=== PATIENT | male | born 1940 | race Asian ===

== ENCOUNTER 2017-07-06 06:55 | Day surgery (SDC) | payer OTHER ==
[2017-07-03 15:55] VITALS: BMI 25.6
[~2017-07-06 06:55] MED LIST: LEVOFLOXACIN 500 MG PREMIX BAG IVPB ONE
[2017-07-06] MEDS ORDERED: LIDOCAINE HCL/PF 2% SDV 5ML VIAL ONE (07:41)
[2017-07-06] MEDS ORDERED: MIDAZOLAM HCL 2 MG/2 ML SINGLE DOSE VIAL ONE (07:41)
[2017-07-06] MEDS ORDERED: PROPOFOL 20 ML ONE ×4 (07:42)
[2017-07-06] MEDS ORDERED: LEVOFLOXACIN 500 MG PREMIX BAG IVPB ONE (08:20)
[2017-07-06] MEDS ORDERED: PHENYLEPHRINE HCL 10 MG/1 ML SINGLE DOSE VIAL ONE (08:31)
[2017-07-06] MEDS ORDERED: oxyCODONE HCL 5 MG TABLET PO PRN (08:58)
[2017-07-06] MEDS ORDERED: ONDANSETRON 4 MG/2 ML VIAL IVPUSH PRN (08:58)
[2017-07-06] MEDS ORDERED: LACTATED RINGERS SOLUTION 1,000 ML IV SCH (09:00)
[2017-07-06 09:23] VITALS: TEMP 97.5
[2017-07-06 09:49] VITALS: BP 104/70; PULSE 68
--- NOTE | 2017-07-06 10:21 | OP ---
Operative Note - Note: Operative Date: 07/06/17 Pre-Operative Diagnosis: left renal stone Operation: left ESWL Findings: 15 mm left upper pole and 15 mm left lower pole stone identified Post-Operative Diagnosis: Same as Pre-op Surgeon: López Clay Anesthesia: Fractional Operative Report Dictated: Yes
--- NOTE | 2017-07-06 20:43 | OP ---
DATE OF OPERATION: 07/06/2017 PREOPERATIVE DIAGNOSIS: Left renal stones. POSTOPERATIVE DIAGNOSIS: Left renal stones. PROCEDURE: Left extracorporeal shock wave lithotripsy. ATTENDING: Paradise Peoples MD ANESTHESIA: Fractional. OPERATION: The patient was brought in the operating room and placed in a supine position on the operating room table. Ultrasonography and fluoroscopy were performed. Two stones were identified. A 1.5-cm upper-pole stone and a 1.5-cm lower-pole stone were identified in the left kidney. At this point, fractional anesthesia was administered as was preoperative antibiotics. Extracorporeal shock wave lithotripsy was performed on the upper-pole stone; 2500 impulses at 20 joules of power were administered to the upper-pole stone. Excellent fragmentation was noted under real-time ultrasonography and fluoroscopy. No complications were noted. The patient tolerated the procedure very well. The patient has a 1.5-cm lower-pole stone still in the kidney. A followup shock wave lithotripsy will be performed in 6 months. PARADISE PEOPLES M.D. [id number]
== END 2017-07-06 10:20 | disposition home or self-care (01) ==
LOC: JASU-SURG 06:55
PROVIDERS: ATTEND Urology
PROC: 0TF4XZZ Fragmentation in Left Kidney Pelvis, External Approach (ICD-10-PCS; principal; 2017-07-06 08:00)
DX: N20.0 Calculus of kidney (principal)
CPT/HCPCS: 82962

== ENCOUNTER 2020-10-08 04:10 | Day surgery (SDC) | payer OTHER ==
[2020-10-04 18:17] VITALS: BMI 27.4
[2020-10-08] MEDS ORDERED: PROPOFOL 20 ML ONE (07:45)
[2020-10-08] MEDS ORDERED: MIDAZOLAM HCL 2 MG/2 ML SINGLE DOSE VIAL ONE (07:45)
[2020-10-08 10:17] VITALS: BP 110/68; PULSE 63; TEMP 97.4
[2020-10-08] MEDS ORDERED: ACETAMINOPHEN 325 MG TABLET (FP) PO PRN (10:43)
[2020-10-08] MEDS ORDERED: ONDANSETRON 4 MG/2 ML VIAL IVPUSH PRN (10:43)
[2020-10-08] MEDS ORDERED: LACTATED RINGERS SOLUTION 1,000 ML IV SCH (10:45)
== END 2020-10-08 12:06 | disposition home or self-care (01) ==
LOC: JASU-SURG 04:10
PROVIDERS: ATTEND Urology
PROC: 0TF4XZZ Fragmentation in Left Kidney Pelvis, External Approach (ICD-10-PCS; principal; 2020-10-08 08:00)
DX: N20.0 Calculus of kidney (principal)
CPT/HCPCS: 82962

== ENCOUNTER 2021-04-22 04:28 | Day surgery (SDC) | payer OTHER ==
[2021-04-18 09:01] VITALS: BMI 24.7
[2021-04-22] MEDS ORDERED: MIDAZOLAM HCL 2 MG/2 ML SINGLE DOSE VIAL ONE (07:51)
[2021-04-22 10:26] VITALS: BP 105/60; PULSE 70; TEMP 98.1
== END 2021-04-22 10:15 | disposition home or self-care (01) ==
LOC: JASU-SURG 04:28
PROVIDERS: ATTEND Urology
PROC: 0TF4XZZ Fragmentation in Left Kidney Pelvis, External Approach (ICD-10-PCS; principal; 2021-04-22 08:00)
DX: N20.0 Calculus of kidney (principal)
CPT/HCPCS: 82962

== ENCOUNTER 2023-02-27 09:24 | Emergency (ER) | payer OTHER ==
[2023-02-27 09:34] VITALS: BMI 24.1
[2023-02-27] MEDS ORDERED: SODIUM CHLORIDE 0.9% 500 ML INFUS.BAG IV ONE ×2 (10:06→12:24)
[2023-02-27] MEDS ORDERED: MECLIZINE HCL 12.5 MG TABLET PO ONE (10:09)
[2023-02-27] MEDS ORDERED: MECLIZINE HCL 12.5 MG TABLET ONE (10:30)
[2023-02-27 11:53] LABS: URINE APPEARANCE CLEAR; URINE BILIRUBIN NEGATIVE (NEGATIVE); URINE COLOR YELLOW; URINE GLUCOSE (UA) 3+ (NEGATIVE); URINE KETONE NEGATIVE (NEGATIVE); URINE LEUK ESTERASE NEGATIVE (NEGATIVE); URINE NITRITE NEGATIVE (NEGATIVE); URINE PROTEIN NEGATIVE (NEGATIVE); URINE UROBILINOGEN 0.2 mg/dL (0.2-1.0)
[2023-02-27 11:56] LABS: BASO % 0.4 % (0-2.0); EOS % 1.2 % (0-4.5); HEMATOCRIT 38.6 % (35.4-49); HEMOGLOBIN 12.3 GM/dL (11.7-16.9); LYMPH % 15.2 % (8-40); MCH 25.5 pg (25.7-33.7); MCHC 31.9 g/dl (32.0-35.9); MEAN CELL VOLUME 79.9 fl (80-96); MONO % 13.1 % (3.8-10.2); NEUT % 70.1 % (42.8-82.8); PLATELET COUNT 361 10^3/uL (134-434); RBC 4.83 M/mm3 (4.00-5.60); RDW 14.6 % (11.9-15.9); WHITE BLOOD COUNT 6.8 K/mm3 (4.0-10.0)
[2023-02-27 12:04] LABS: POTASSIUM 4.7 mmol/L (3.5-5.1)
[2023-02-27 12:06] LABS: CALCIUM 9.5 mg/dL (8.5-10.1)
[2023-02-27 12:07] LABS: ALBUMIN 3.5 g/dl (3.4-5.0); BLOOD UREA NITROGEN 23.4 mg/dL (7-18); MAGNESIUM 1.9 mg/dL (1.8-2.4)
[2023-02-27 12:10] LABS: CREATININE 1.2 mg/dL (0.55-1.3)
[2023-02-27 12:11] LABS: BILIRUBIN,TOTAL 0.6 mg/dL (0.2-1); TOT PROT 7.6 g/dl (6.4-8.2)
[2023-02-27 15:58] VITALS: BP 119/66; PULSE 85; RESP 17; TEMP 98.3
== END 2023-02-27 16:25 | disposition home or self-care (01) ==
LOC: JER 09:24
DX: I95.9 Hypotension, unspecified (principal); R05.9 Cough, unspecified; R42 Dizziness and giddiness; R53.1 Weakness; J09.X2 Influenza due to identified novel influenza A virus with other respiratory manifestations; Z20.822 Contact with and (suspected) exposure to COVID-19
CPT/HCPCS: 0241U-QW; 36415; 70450-TC; 71045-TC-FY; 80053; 81003; 82962; 83735; 84484; 85025; 87086; 93005; 93010; 99285-25

== ENCOUNTER 2023-11-30 04:14 | Day surgery (SDC) | payer OTHER ==
[2023-11-23 11:04] VITALS: BMI 23.8
[2023-11-30] MEDS ORDERED: MIDAZOLAM HCL 2 MG/2 ML SINGLE DOSE VIAL ONE (08:41)
[2023-11-30 09:45] VITALS: TEMP 97.3
[2023-11-30 11:17] VITALS: BP 123/69; PULSE 71; RESP 18
== END 2023-11-30 10:55 | disposition home or self-care (01) ==
LOC: JASU-SURG 04:14
PROVIDERS: ATTEND Urology
PROC: 0TF3XZZ Fragmentation in Right Kidney Pelvis, External Approach (ICD-10-PCS; principal; 2023-11-30 09:00)
DX: N20.0 Calculus of kidney (principal)
CPT/HCPCS: 82962